=== PATIENT | male | born 1970 | race Caucasian/White ===

== ENCOUNTER → 2018-11-06 | Outpatient (CLI) | payer OTHER ==
[~2018-11-06] MED LIST: ACHD5005; AMOX500C2; FLUT16SP22; IBUP-1780; LISI10TA2; OXYC10TA85
== END ==
LOC: CARD 09:24
PROVIDERS: ATTEND Internal Medicine Cardiovascular Disease
DX: R07.9 Chest pain, unspecified (principal); R00.2 Palpitations; R06.02 Shortness of breath; I10 Essential (primary) hypertension
CPT/HCPCS: 93306

== ENCOUNTER → 2018-11-13 | Outpatient (CLI) | payer OTHER ==
[~2018-11-13] MED LIST changes: +CATHETER FLUSH 10 ML SYR IV PRN
[2018-11-13 09:10] VITALS: BP 114/74
[2018-11-13 09:12] VITALS: BP 136/70
[2018-11-13 09:20] VITALS: BP 175/73
[2018-11-13 09:21] VITALS: BP 181/79
[2018-11-13 09:22] VITALS: BP 181/79
[2018-11-13 09:23] VITALS: BP 153/77
--- NOTE | 2018-11-13 14:51 | STRESS TEST ---
DATE OF SERVICE: 11/13/2018 EXERCISE MYOVIEW STRESS TEST REPORT REFERRING PHYSICIAN: CANDELARIO Arvizu Baseline heart rate is 60. Baseline blood pressure 107/71. Baseline EKG is sinus rhythm with no ischemic changes. In summary, the patient was injected with 10.98 mCi of technetium-99 Myoview and the resting images were obtained. Then, the patient started exercising with a baseline heart rate, blood pressure and EKG mentioned above. At peak stress level, the patient was injected with 31.3 mCi of technetium-99 Myoview. The patient was able to finish a total of 10 minutes 25 seconds on standard Ricki protocol. With peak exercise level, blood pressure was 181/79. EKG was showing minimal nondiagnostic changes. During recovery, heart rate and blood pressure returned to baseline. EKG returned to baseline. The resting and stress images were reviewed and compared in the short axis, horizontal long axis, and vertical long axis views. Review of the images showed diaphragmatic attenuation with no significant ischemia or infarction. SSS is 0. TID value 0.73. On the gated images, the left ventricle appeared to be in normal size with normal contractility. Calculated ejection fraction 66%. CONCLUSION: 1. Excellent exercise tolerance, a total of 10 minutes 25 seconds on standard Ricki protocol, total of 11.3 METS achieving 88% of maximum expected heart rate. 2. Hypertensive response to exercise, returned to baseline during recovery. 3. Minimal nondiagnostic EKG changes with exercise returned to baseline during recovery. 4. No ischemia or infarction on SPECT images. 5. Normal left ventricular size with normal contractility. Calculated ejection fraction 66%. Job ID: [id number] DocumentID: [id number] Dictated Date: 11/13/2018 12:16:14 Residential Property Consultant Date: 11/13/2018 14:51:01 Dictated By: KISHA WEAVER MD
== END ==
LOC: CARD 07:18
PROVIDERS: ATTEND Internal Medicine Cardiovascular Disease
DX: R07.9 Chest pain, unspecified (principal); R00.2 Palpitations; R06.02 Shortness of breath; I10 Essential (primary) hypertension
CPT/HCPCS: 78452; 93017

== ENCOUNTER → 2021-06-17 | Outpatient (CLI) | payer BC, OTHER ==
[~2021-06-17] MED LIST changes: -CATHETER FLUSH 10 ML SYR IV PRN; -LISI10TA2; +LISI10TA25
== END ==
LOC: CARD 13:48
PROVIDERS: ATTEND Internal Medicine Cardiovascular Disease
DX: I10 Essential (primary) hypertension (principal); I25.10 Atherosclerotic heart disease of native coronary artery without angina pectoris
CPT/HCPCS: 93306

== ENCOUNTER → 2021-07-08 | Outpatient (CLI) | payer BC, OTHER ==
[~2021-07-08] VITALS: Ht 160 cm; Wt 80.0 kg
[~2021-07-08] MED LIST changes: +CATHETER FLUSH 10 ML SYR IV PRN; +OXYC-710; -OXYC10TA85
[2021-07-08 09:50] VITALS: BP 194/103
--- NOTE | 2021-07-08 11:53 | Cardiology Stress Test Report ---
Stress Test Report Date of Procedure/Referring: Date of Procedure: Jul 08, 2021 PCP Kisha Cooper MD Admitting Physician No,Local Physician Indications: HTN Baseline Heart Rate: 54 Baseline Blood Pressure: Blood Pressure Systolic: 194 Blood Pressure Diastolic: 103 Vital Signs Date Time Temp Pulse Resp B/P (MAP) Pulse Ox O2 Delivery O2 Flow Rate FiO2 07/08/21 09:50 62 18 194/103 (133) 98 Room Air Baseline Vital Signs Vital Signs Date Time Temp Pulse Resp B/P (MAP) Pulse Ox O2 Delivery O2 Flow Rate FiO2 07/08/21 09:50 62 18 194/103 (133) 98 Room Air Baseline EKG: Baseline EKG: NSR Summary: After explaining the procedure and details to the patient, he signed the consent and was brought to the stress nuclear laboratory. Patient exercised on standard Ricki protocol, EKG, heart rate and blood pressure were monitored continuously, resting and stress doses of radio tracer were injected, imaging was acquired and reviewed in the short axis, horizontal long axis and vertical long axis views Patient was able to exercise for a total of 10.30 minutes on Ricki protocol, METs 11.5 Maximum heart rate 159 Maximum blood pressure 211/95 Stress EKG, Minimal nondiagnostic changes Recovery EKG, Return to baseline TID: 0.91 SSS: 2 SDS: 2 EF: 62 Conclusion: 1. Good exercise tolerance for a total of 10 minutes 30 seconds on standard Ricki protocol, 11.5 METS achieving 94% of maximal expected heart rate 2. Appropriate heart rate response to exercise with hypertensive response to exercise with peak blood pressure 211/95 return to baseline during recovery 3. Transient episode of ventricular trigeminy noted early in recovery, minimal nondiagnostic EKG changes with exercise return to baseline during recovery 4. Mild decrease uptake involving the mid to apical anterolateral wall with mild reversibility 5. Normal left ventricular size, EF 62% KISHA COOPER MD Jul 08, 2021 11:53
== END ==
LOC: CARD 08:30
PROVIDERS: ATTEND Internal Medicine Cardiovascular Disease
DX: I10 Essential (primary) hypertension (principal); I25.10 Atherosclerotic heart disease of native coronary artery without angina pectoris
CPT/HCPCS: 78452; 93017; A9502